=== PATIENT | female | born 1960 | race Caucasian/White ===

== ENCOUNTER 2019-03-08 18:30 | Emergency (ER) | payer BC, OTHER ==
[~2019-03-08 18:30] MED LIST: Ondansetron 4 MG/2 ML SDV ONE
[2019-03-08 19:02] LABS: CHLORIDE,CL 101 mEq/L (98-106); SODIUM,NA 139 mEq/L (136-145)
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
[2019-03-08] MEDS ORDERED: Iopamidol 755 Mg/ML 100 ML Bottle IVPUSH ONE (19:48)
[2019-03-08 23:12] VITALS: BP 121/63
== END 2019-03-08 20:02 ==
LOC: CC.ED 18:30
DX: S06.0X9A Concussion with loss of consciousness of unspecified duration, initial encounter (principal); S40.811A Abrasion of right upper arm, initial encounter; S50.312A Abrasion of left elbow, initial encounter; S50.311A Abrasion of right elbow, initial encounter; I10 Essential (primary) hypertension; E03.9 Hypothyroidism, unspecified; M19.90 Unspecified osteoarthritis, unspecified site; Z88.6 Allergy status to analgesic agent; Z91.040 Latex allergy status; Z91.041 Radiographic dye allergy status; Z88.5 Allergy status to narcotic agent; Z88.8 Allergy status to other drugs, medicaments and biological substances; Z79.899 Other long term (current) drug therapy; V86.59XA Driver of other special all-terrain or other off-road motor vehicle injured in nontraffic accident, initial encounter
CPT/HCPCS: 36415; 70450; 71260; 72125; 74177; 80053; 82150; 85025; 85610; 96374; 99285-25; J2405; Q9967

== ENCOUNTER 2020-09-13 19:34 | Emergency (ER) | payer BC, OTHER ==
[2020-09-13 19:54] VITALS: BP 154/59; PULSE 69
[2020-09-13] MEDS ORDERED: Orphenadrine 60 MG/2 ML Inj IM ONE (20:20)
[2020-09-13] MEDS ORDERED: Ondansetron 4 MG Tab.DIS PO ONE (20:20)
[2020-09-13] MEDS ORDERED: HYDROmorphone 1 MG/ML Syringe IM ONE (20:20)
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
[2020-09-13] MEDS ORDERED: Cyclobenzaprine 10 MG Tab ONE (20:25)
[2020-09-13] MEDS ORDERED: Ketorolac 10 MG Tab ONE (20:25)
[2020-09-13] MEDS ORDERED: Take Home: Cyclobenzaprine 10 MG Tab, 4 Tab Pack PO ONE (20:31)
[2020-09-13] MEDS ORDERED: Take Home: Acetaminophen/oxyCODONE 325-5 MG, 2 Tab Pack PO ONE (20:31)
[2020-09-13] MEDS ORDERED: Take Home: Ketorolac 10 MG Tab, 4 Tab Pack PO ONE (20:37)
[2020-09-13] MEDS ORDERED: Ketorolac 60 MG/2 ML SDV IM ONE (20:37)
[2020-09-13] MEDS ORDERED: Take Home: Ondansetron 4 MG Tab.DIS, 2 Tab Pack PO ONE (20:46)
[2020-09-13] MEDS ORDERED: Ondansetron 4 MG Tab.DIS ONE (22:54)
== END 2020-09-13 20:56 | disposition home or self-care (01) ==
LOC: CC.ED 19:34
DX: S86.112A Strain of other muscle(s) and tendon(s) of posterior muscle group at lower leg level, left leg, initial encounter (principal); I10 Essential (primary) hypertension; E03.9 Hypothyroidism, unspecified; E66.9 Obesity, unspecified; Z68.34 Body mass index [BMI] 34.0-34.9, adult; Z88.6 Allergy status to analgesic agent; Z91.048 Other nonmedicinal substance allergy status; Z91.041 Radiographic dye allergy status; Z91.040 Latex allergy status; Z88.1 Allergy status to other antibiotic agents; Z91.013 Allergy to seafood; Z88.5 Allergy status to narcotic agent; Z88.8 Allergy status to other drugs, medicaments and biological substances; Z79.899 Other long term (current) drug therapy; X58.XXXA Exposure to other specified factors, initial encounter
CPT/HCPCS: 73502; 96372; 99283; A9270; J1170; J1885; J2360